=== PATIENT | male | born 1940 | race Caucasian/White ===

== ENCOUNTER 2018-07-16 06:47 | Inpatient (IN) ==
[2018-07-09 15:34] LABS: Basophils # 0.1 10*3/uL (0.0-0.2); Basophils % 0.8 % (0.0-0.8); Eosinophils # 0.3 10*3/uL (0.0-0.87); Eosinophils % 5.3 % (0.00-10.9); Hematocrit 45.8 VOL% (42.0-52.0); Hemoglobin 14.6 GM/DL (14.0-18.0); Immature Granulocytes % 0.3 %; Immature Granulocytes Absolute 0.02 #; Lymphocytes # 1.8 10*3/uL (1.4-4.0); Lymphocytes % 27.9 % (21.2-54.2); Mean Corpuscular HGB Conc 31.9 GM/DL (32-36); Mean Corpuscular Hemoglobin 31 PG (27-34); Mean Platelet Volume 10.2 FL (9.6-12.0); Monocytes # 0.4 10*3/uL (0.11-0.8); Neutrophils # 3.9 10*3/uL (1.4-7.4); Neutrophils % 59.7 % (38.7-73.9); Platelet Count 159 T/CUMM (130-400); Red Blood Count 4.77 MC/CUMM (3.8-5.5); Red Cell Distribution Width 12.7 % (9.3-17.3); White Blood Count 6.5 T/CUMM (4-12)
[2018-07-09 16:02] LABS: Albumin 3.8 G/DL (3.4-5.0); Bilirubin,Total 0.4 MG/DL (0.2-1.0); Calcium 8.7 MG/DL (8.5-10.1); Osmolality,Calculated 276.8 MOS/KG (273-304); Total Protein 7.1 G/DL (6.4-8.3)
[2018-07-09 16:05] LABS: Potassium 6.4 MMOL/L (3.5-5.1)
[~2018-07-16 06:47] MED LIST: ceFAZolin 1,000 MG in SYRINGE 1 EACH IV ONE
[2018-07-16] MEDS ORDERED: HEPARIN 5,000 UNIT/1 ML VIAL ONE (07:36)
[2018-07-16] MEDS ORDERED: LIDOCAINE 1% 20 ML VIAL ONE (07:36)
[2018-07-16] MEDS ORDERED: HEPARIN/NACL 0.9% 2 UNITS/ML 500 ML IV ONE (07:39)
[2018-07-16] MEDS ORDERED: PHENYLEPHRINE 10 MG/1 ML VIAL IV ONE (07:39)
[2018-07-16] MEDS ORDERED: SODIUM CHLORIDE 0.9% 1,000 ML IV ONE (07:40)
[2018-07-16] MEDS ORDERED: NITROGLYCERIN DRIP 50 MG/250 ML BOTTLE IV ONE (07:40)
[2018-07-16] MEDS ORDERED: SODIUM CHLORIDE 0.9% 250 ML IV ONE (07:40)
[2018-07-16] MEDS: LACTATED RINGERS 1,000 ML IV SCH ×4 (07:48→22:40)
[2018-07-16] MEDS ORDERED: ceFAZolin 1,000 MG VIAL ONE (07:53)
[2018-07-16] MEDS ORDERED: DEXTROSE 50% 25 GM/50 ML VIAL IV PRN (09:50)
[2018-07-16] MEDS ORDERED: HYDROmorphone 2 MG/1 ML VIAL IV PRN ×2 (09:50)
[2018-07-16] MEDS ORDERED: ONDANSETRON 4 MG/2 ML VIAL IV PRN (09:50)
[2018-07-16] MEDS ORDERED: GLUCAGON 1 MG VIAL IM PRN (09:50)
[2018-07-16] MEDS ORDERED: PROMETHAZINE 25 MG/1 ML VIAL IM PRN (09:50)
[2018-07-16] MEDS ORDERED: NALOXONE 0.4 MG/ML VIAL IV PRN (09:50)
[2018-07-16] MEDS ORDERED: oxyCODONE/ACETAMINOPHEN 5-325 MG TABLET PO PRN ×2 (09:50)
[2018-07-16] MEDS ORDERED: NAPROXEN SOD PO PRN (09:52)
[2018-07-16] MEDS ORDERED: DIPHENHYDRAMINE PO PRN (09:52)
[2018-07-16] MEDS ORDERED: PHENYLEPHRINE DRIP 40 MG/250 ML PREMIX IV SCH (10:00)
[2018-07-16] MEDS ORDERED: NITROPRUSSIDE 100 MG in DEXTROSE 5% 250 ML IV SCH (10:00)
[2018-07-16] MEDS ORDERED: SEVOFLURANE 1 UNIT/15 MINUTE INH ONE (10:18)
[2018-07-16] MEDS ORDERED: ONDANSETRON 4 MG/2 ML VIAL ONE (10:19)
[2018-07-16] MEDS ORDERED: GLYCOPYRROLATE 0.4 MG/2 ML VIAL ONE (10:19)
[2018-07-16] MEDS ORDERED: KETOROLAC 30 MG/1 ML VIAL ONE (10:19)
[2018-07-16] MEDS ORDERED: ETOMIDATE 40 MG/20 ML VIAL IV ONE (10:19)
[2018-07-16] MEDS ORDERED: fentaNYL 100 MCG/2 ML VIAL ONE (10:19)
[2018-07-16] MEDS ORDERED: DEXAMETHASONE 4 MG/1 ML VIAL ONE (10:19)
[2018-07-16] MEDS ORDERED: ePHEDrine 50 MG/ML AMP ONE (10:19)
[2018-07-16] MEDS ORDERED: PHENYLEPHRINE 1 MG/10 ML SYRINGE IV ONE (10:20)
[2018-07-16] MEDS ORDERED: NEOSTIGMINE 10 MG/10 ML VIAL ONE (10:20)
[2018-07-16] MEDS ORDERED: PROTAMINE SULFATE 50 MG/5 ML VIAL IV ONE (10:20)
[2018-07-16] MEDS ORDERED: ROCURONIUM 100 MG/10 ML VIAL IV ONE (10:20)
[2018-07-16] MEDS ORDERED: ATROPINE 1 MG/10 ML SYRINGE IV PRN ×2 (17:03→20:00)
[2018-07-16 17:50] LABS: Thyroid Stimulating Hormone 2.55 uIU/ml (0.358-3.74)
[2018-07-16] MEDS: TAMSULOSIN 0.4 MG CAPSULE PO SCH (18:24)
[2018-07-17 05:34] LABS: Calcium 8.2 MG/DL (8.5-10.1); Osmolality,Calculated 282.4 MOS/KG (273-304); Potassium 5.4 MMOL/L (3.5-5.1)
[2018-07-17] MEDS: ASPIRIN EC 81 MG TABLET PO SCH (08:28)
[2018-07-17] MEDS: TAMSULOSIN 0.4 MG CAPSULE PO SCH (08:28)
[2018-07-17] MEDS: PANTOPRAZOLE 40 MG TABLET PO SCH (08:28)
[2018-07-17] MEDS: CLOPIDOGREL 75 MG TABLET PO SCH (08:28)
[2018-07-17] MEDS: SIMVASTATIN 20 MG TABLET PO SCH (08:28)
[2018-07-17] MEDS ORDERED: METOPROLOL SUCCINATE XL 25 MG TABLET PO SCH (09:00)
[2018-07-17] MEDS ORDERED: ASPIRIN EC 81 MG TABLET PO SCH (09:00)
[2018-07-17] MEDS ORDERED: TAMSULOSIN 0.4 MG CAPSULE PO SCH (09:00)
[2018-07-17] MEDS ORDERED: PHENOL 1.4% THROAT SPRAY 177 ML BOTTLE PO PRN (09:16)
[2018-07-17] MEDS: LACTATED RINGERS 1,000 ML IV SCH ×2 (10:23→10:24)
[2018-07-17] MEDS: FUROSEMIDE 20 MG TABLET PO SCH (10:48)
[2018-07-17] MEDS ORDERED: diphenhydrAMINE CAP 50 MG CAPSULE PO PRN (20:50)
[2018-07-18 07:35] VITALS: BP 170/84
[2018-07-18] MEDS: FUROSEMIDE 20 MG TABLET PO SCH (09:08)
[2018-07-18] MEDS: TAMSULOSIN 0.4 MG CAPSULE PO SCH (09:08)
[2018-07-18] MEDS: PANTOPRAZOLE 40 MG TABLET PO SCH (09:08)
[2018-07-18] MEDS: SIMVASTATIN 20 MG TABLET PO SCH (09:08)
[2018-07-18] MEDS: CLOPIDOGREL 75 MG TABLET PO SCH (09:08)
[2018-07-18] MEDS: ASPIRIN EC 81 MG TABLET PO SCH (09:08)
[2018-07-18] MEDS ORDERED: amLODIPine 5 MG TABLET PO SCH (10:30)
== END 2018-07-18 12:00 | disposition home or self-care (01) | DRG 39 ==
LOC: N.SDSINP 06:47 → N.ICU 12:12 → N.2E 07-17 15:27
PROVIDERS: ADMIT Surgery; ATTEND Surgery

== ENCOUNTER 2018-11-08 12:29 | Inpatient (IN) ==
[2018-11-08] MEDS ORDERED: LORazepam 2 MG/1 ML VIAL IV STA ×2 (12:45→12:50)
[2018-11-08] MEDS ORDERED: LORazepam 2 MG/1 ML VIAL ONE (12:47)
[2018-11-08 13:46] LABS: Apearance,Urine CLEAR (Clear); Bilirubin,Urine Negative (Negative); Blood, Urine Negative (Negative); Glucose,Urine (UA) Negative (Negative); Hyaline Casts,Urine 5 /LPF (0-3); Ketones,Urine Negative (Negative); Mucus,Urine Occasional /LPF (Occasional); Nitrite,Urine Negative (Negative); Protein,Urine 30 MG/DL; RBC,Urine 4 /HPF (0-4); Sperm,Urine Occasional /HPF (Negative); Squamous Epithelial Cell,Urine Occasional /HPF (0-10); Urine Color Yellow (Yellow); Urine Specific Gravity 1.009 (1.001-1.035); Urine Urobilinogen < 2.0 EU/DL (0.2-1.0); WBC,Urine 2 /HPF (0-6)
[2018-11-08 13:50] LABS: Basophils # 0.1 10*3/uL (0.0-0.2); Basophils % 0.9 % (0.0-0.8); Eosinophils # 0.1 10*3/uL (0.0-0.87); Eosinophils % 2.4 % (0.00-10.9); Hematocrit 40.7 VOL% (42.0-52.0); Hemoglobin 12.5 GM/DL (14.0-18.0); Immature Granulocytes % 0.3 %; Immature Granulocytes Absolute 0.02 #; Lymphocytes % 16.6 % (21.2-54.2); Mean Corpuscular HGB Conc 30.7 GM/DL (32-36); Mean Corpuscular Volume 90.4 FL (87-102); Mean Platelet Volume 9.8 FL (9.6-12.0); Monocytes % 8.1 % (1.7-12.7); Neutrophils % 71.7 % (38.7-73.9); Platelet Count 213 T/CUMM (130-400); Red Cell Distribution Width 13.5 % (9.3-17.3); White Blood Count 5.8 T/CUMM (4-12)
[2018-11-08 13:55] LABS: Albumin 3.5 G/DL (3.4-5.0); Bilirubin,Total 0.4 MG/DL (0.2-1.0); Calcium 8.7 MG/DL (8.5-10.1); Osmolality,Calculated 280.4 MOS/KG (273-304); Total Protein 7.6 G/DL (6.4-8.3)
[2018-11-08 14:02] LABS: PT Patient Result 10.8 SECS; Partial Thromboplastin Time 25.2 SECS (0-40)
[2018-11-08] MEDS ORDERED: ONDANSETRON 4 MG/2 ML VIAL IV PRN (15:45)
[2018-11-08] MEDS ORDERED: ACETAMINOPHEN 325 MG TABLET PO PRN (15:45)
[2018-11-08] MEDS ORDERED: SODIUM POLYSTYRENE SULFATE 15 GM/60 ML BOTTLE PO STA (16:10)
[2018-11-08] MEDS ORDERED: LORazepam 2 MG/1 ML VIAL IV PRN (16:15)
[2018-11-08 19:20] LABS: Barbiturates Screen,Urine Negative (Negative); Benzodiazepines Screen,Urine Negative (Negative); Cannabinoid Screen,Urine Negative (Negative); Opiate Screen,Urine Negative (Negative); Phencyclidine Screen,Urine Negative (Negative)
[2018-11-09 04:55] LABS: Basophils % 0.7 % (0.0-0.8); Eosinophils # 0.2 10*3/uL (0.0-0.87); Eosinophils % 3.5 % (0.00-10.9); Hematocrit 41.8 VOL% (42.0-52.0); Immature Granulocytes % 0.3 %; Immature Granulocytes Absolute 0.02 #; Lymphocytes # 1.3 10*3/uL (1.4-4.0); Lymphocytes % 21.1 % (21.2-54.2); Mean Corpuscular HGB Conc 31.1 GM/DL (32-36); Mean Corpuscular Volume 89.3 FL (87-102); Mean Platelet Volume 10.3 FL (9.6-12.0); Monocytes % 8.1 % (1.7-12.7); Neutrophils % 66.3 % (38.7-73.9); Platelet Count 213 T/CUMM (130-400); Red Blood Count 4.68 MC/CUMM (3.8-5.5); Red Cell Distribution Width 13.5 % (9.3-17.3); White Blood Count 6.1 T/CUMM (4-12)
[2018-11-09 05:25] LABS: Osmolality,Calculated 278.3 MOS/KG (273-304); Risk Ratio 4.74; Thyroid Stimulating Hormone 1.35 uIU/ml (0.358-3.74); VLDL CHOLESTEROL 36.2 MG/DL
[2018-11-09] MEDS ORDERED: amLODIPine 5 MG TABLET PO SCH (09:00)
[2018-11-09] MEDS ORDERED: TAMSULOSIN 0.4 MG CAPSULE PO SCH (09:00)
[2018-11-09] MEDS ORDERED: METOPROLOL SUCCINATE XL 25 MG TABLET PO SCH (09:00)
[2018-11-09] MEDS ORDERED: ASPIRIN EC 81 MG TABLET PO SCH (09:00)
[2018-11-09] MEDS ORDERED: PANTOPRAZOLE 40 MG TABLET PO SCH (09:00)
[2018-11-09] MEDS ORDERED: FUROSEMIDE 20 MG TABLET PO SCH (09:00)
[2018-11-09] MEDS ORDERED: MAGNESIUM SULF RIDER 4 GM in PREMIX 1 EACH IV PRN (11:24)
[2018-11-09] MEDS ORDERED: MAGNESIUM SULF RIDER 2 GM in PREMIX 1 EACH IV PRN (11:24)
[2018-11-09 15:58] VITALS: BP 103/64
[2018-11-09] MEDS ORDERED: OXcarbazepine 300 MG TABLET PO SCH (21:00)
[2018-11-09] MEDS ORDERED: SIMVASTATIN 20 MG TABLET PO SCH (21:00)
[2018-11-09] MEDS ORDERED: APIXABAN 2.5 MG TABLET PO SCH (21:00)
== END 2018-11-09 17:54 | disposition home health service (06) | DRG 65 ==
LOC: N.ED 12:29 → N.EDINP 15:24 → N.2E 16:19
PROVIDERS: ADMIT Internal Medicine; ATTEND Internal Medicine